=== PATIENT | female | born 1995 | race Caucasian/White ===

== ENCOUNTER 2019-05-13 16:56 | Outpatient (CLI) | payer MEDICAID ==
[~2019-05-13] VITALS: Ht 170.2 cm; Wt 115.2 kg
[~2019-05-13 16:56] MED LIST: AGM875T PO; CETI10TA17 PO; HSCO125 PO; HYDR-3714 PO; METH36TA11 PO; NAPR-591 PO; OMEP40CA36 PO; OXYC-12 PO; SERT100T PO; SERT50TA2 PO
--- NOTE | 2019-05-13 17:10 | NUR ---
JOCELYN TAPIA presented to unit via w/c from ED, accompanied by parents, with c/o LOWER ABD PRESSURE, DISCHARGE. JOCELYN TAPIA weighed, gowned, voided, and to bed. EFHM and TOCO applied, VS taken. JOCELYN TAPIA oriented to bed controls, call light, TV, heat, and A/C controls.
[2019-05-13 17:15] VITALS: BP 107/63
[2019-05-13 17:30] VITALS: BP 107/63
--- NOTE | 2019-05-13 17:40 | NUR ---
DR. PEOPLES NOTIFIED OF EVALUATION. CERVICAL EXAM, COMPLAINT, URINARY SYMPTOMS, AND VS.
[2019-05-13 17:53] LABS: CLARITY,URINE CLOUDY; COLOR,URINE YELLOW; GLUCOSE, URINE (UA) NEGATIVE (NEGATIVE); KETONES,URINE 1+ (NEGATIVE); LEUKOCYTE ESTERASE ,URINE 1+ (NEGATIVE); NITRITE,URINE NEGATIVE (NEGATIVE); PH,URINE 5.5 (5-9); PROTEIN,URINE 1+ (NEGATIVE)
--- NOTE | 2019-05-13 18:06 | NUR ---
FHR TRACING REVIEWED WITH DR. PEOPLES.
[2019-05-13 18:15] LABS: BILIRUBIN,URINE 1+ (NEGATIVE); RBC,URINE RARE /HPF
[2019-05-13 18:16] LABS: BACTERIA,URINE LARGE /HPF; SQUAMOUS EPITHELIAL CELL,UR 25-50 /HPF; WBC,URINE 25-50 /HPF
--- NOTE | 2019-05-13 18:25 | NUR ---
URINE RESULTS REPORTED TO DR. PEOPLES.
--- NOTE | 2019-05-13 18:29 | NUR ---
UTERINE IRRITABILITY WITH ONE CTX NOTED. OCC VARIABLE NOTED. FETUS APPEARS TO HAVE ARRHYTHMIA WITH AUDIBLE SKIPPED BEATS NOTED. DR. PEOPLES NOTIFIED. FHR BASELINE 140 WITH MOD VARIABILITY. + FM WITH + ACCELS.
--- NOTE | 2019-05-13 18:30 | NUR ---
EFM OFF. UP TO GET DRESSED.
[2019-05-13] MEDS ORDERED: PNV11TAB5 PO (18:44)
[2019-05-13] MEDS ORDERED: RANI150T90 PO (18:45)
[2019-05-13] MEDS ORDERED: AMOX500C2 PO (18:47)
--- NOTE | 2019-05-13 18:50 | NUR ---
RX CALLED TO [facility] FOR AMOXICILLIN 500MG BID X [address] PEOPLES'S ORDER.
[2019-05-13 18:55] VITALS: BP 107/63
--- NOTE | 2019-05-13 18:55 | NUR ---
DISCHARGE INSTRUCTIONS REVIEWED WITH PT AND FAMILY AND COPY GIVEN. STATES UNDERSTANDING OF ALL INSTRUCTIONS AND NEED TO F/U SCHEDULED AND NEEDED. DISMISSED AMB FROM WS IN STABLE CONDITION ACC BY PARENTS.
--- NOTE | 2019-05-14 08:22 | Physician Query-Final Dx ---
SUZIE GUZMÁN 05/14/19 0822: Clinic Account Progress/Dx Physician Query: Please give diagnosis Please include # weeks gestation Date of Service May 13, 2019 at 16:56 VICKIE PEOPLES MD 05/14/19 1221: Clinic Account Progress/Dx DIAGNOSIS: Diagnosis 37 weeks gestation urinary tract infection SUZIE GUZMÁN May 14, 2019 08:22 VICKIE PIERRE MD May 14, 2019 12:21 POS
== END 2019-05-13 18:55 | disposition home or self-care (01) ==
LOC: WSo 16:56 → LDRP 16:57 → WSo 18:55
PROVIDERS: ATTEND Family Medicine
DX: O23.43 Unspecified infection of urinary tract in pregnancy, third trimester (principal); Z3A.37 37 weeks gestation of pregnancy
CPT/HCPCS: 81000; 87088; 99213

== ENCOUNTER 2019-06-01 06:00 | Inpatient (IN) | payer MEDICAID ==
[2019-06-01] VITALS (48 sets, daily range): BP systolic 107–137; BP diastolic 61–88
[~2019-06-01] VITALS: Ht 172.7 cm; Wt 114.2 kg
[~2019-06-01 06:00] MED LIST changes: +AMOX500C2 PO; +PNV11TAB5 PO; +RANI150T90 PO
--- NOTE | 2019-06-01 06:35 | NUR ---
JOCELYN TAPIA presented to unit via ambulation from home, accompanied by family, for INDUCTION. JOCELYN TAPIA weighed, gowned, voided, and to bed. EFHM and TOCO applied, VS taken. JOCELYN TAPIA oriented to bed controls, call light, TV, heat, and A/C controls.
[2019-06-01] MEDS ORDERED: D5 LR IV SOLUTION 1,000 ML IV SCH (07:06)
[2019-06-01] MEDS ORDERED: MINERAL OIL CONCENTRATE 99.9% 15 ML UDC TOP PRN (07:15)
[2019-06-01 07:39] LABS: BASOPHILS % (AUTO) 0 % (0-10); EOSINOPHILS # (AUTO) 0.1 10^3/uL (0.0-0.3); EOSINOPHILS % (AUTO) 1 % (0-10); HEMATOCRIT 28 % (35-52); HEMOGLOBIN 9.1 G/DL (11.5-16.0); LYMPHOCYTES % (AUTO) 18 % (12-44); MEAN CORPUSCULAR HEMOGLOBIN 28 PG (25-34); MEAN CORPUSCULAR HGB CONC 32 G/DL (32-36); MEAN CORPUSCULAR VOLUME 88 FL (80-99); MEAN PLATELET VOLUME 10.7 FL (7.4-10.4); MONOCYTES # (AUTO) 0.7 X 10^3 (0.0-1.0); MONOCYTES % (AUTO) 13 % (0-12); NEUTROPHILS # (AUTO) 3.9 X 10^3 (1.8-7.8); NEUTROPHILS % (AUTO) 69 % (42-75); PLATELET COUNT 176 10^3/uL (130-400); RED CELL DISTRIBUTION WIDTH 14.4 % (10.0-14.5); WHITE BLOOD COUNT 5.7 10^3/uL (4.3-11.0)
[2019-06-01] MEDS ORDERED: PNV11TAB5 PO (07:54)
[2019-06-01] MEDS ORDERED: SUFENTA 0.6MCG/ML BUPIVA 0.125 100 ML ONE (08:37)
[2019-06-01] MEDS ORDERED: OXYTOCIN/NORMAL SALINE 500 ML IV SCH ×2 (08:38→14:22)
[2019-06-01] MEDS ORDERED: fentaNYL INJECTION 100 MCG/2 ML AMP ONE (09:10)
[2019-06-01] MEDS ORDERED: BUPIVACAINE 0.25% 30 ML (SENSORCAINE) VIAL ONE (09:10)
[2019-06-01] MEDS ORDERED: LACTATED RINGERS 1,000 ML IV ONE (09:41)
[2019-06-01] MEDS ORDERED: NALOXONE 0.4 MG/ML 1 ML (NARCAN) VIAL IV PRN (09:45)
[2019-06-01] MEDS ORDERED: CATHETER FLUSH 10 ML SYR IV PRN (09:45)
[2019-06-01] MEDS ORDERED: EPIDURAL (SUFENTA 0.6MCG/ML BUPIVA 0.125%) 100 ML BAG EPI SCH (09:45)
--- NOTE | 2019-06-01 13:20 | History & Physical-OB ---
OB - Chief Complaint & HPI Date/Time Date of Admission: Date of Admission: Jun 01, 2019 at 06:24 Date seen by a Provider: Jun 01, 2019 Time Seen by a Provider: 13:15 Chief Complaint/History OB-Reason for Admission/Chief: Induction of Labor Hx : 2 Hx Para: 1 Expected Date of Delivery: Jun 04, 2019 Gestational Age in Weeks: 39 Gestational Age in Days: 4 Indication for induction: maternal discomfort History of Labs Normal 1 hr GTT GBS neg Allergies and Home Medications Allergies Coded Allergies: coconut (Verified Allergy, Unknown, 06/01/19) Home Medications Txq612/FA/Omega3/Dha/Fish Oil 1 Each Tab.chew, 1 EACH PO DAILY, (Reported) Ranitidine HCl 150 Mg Tablet, 150 MG PO BID, (Reported) Patient Home Medication List Home Medication List Reviewed: Yes OB - History Hx of Present Care: Yes Ultrasounds: Normal mid trimester US, Other (Transfer of care from [place] ) Obstetrical Complications: None Information Induced Hypertension: No Maternal Gestational Diabetes: No Hemorrhage: No Obstetrical History Hx : 2 Hx Para: 1 Hx # Term Pregnancies: 1 Number of Living Children: 1 Delivery History Hx Blood Disorders: No Adverse Rxn to Tranfusion: No Patient Past Medical History GERD Obesity Social History/Family History HIV/AIDS: No Recent Infectious Disease Expo: No Alcohol Use: Denies Use Recreational Drug Use: No Immunizations Hepatitis A: No Hepatitis B: No Tetanus Booster (TDap): Less than 5yrs Date of Influenza Vaccine: Apr 12, 2019 GBS Status: Negative OB - Admission Exam Physical Exam Vitals: Vital Signs 06/01/19 06/01/19 06/01/19 09:43 11:15 11:30 Temp 36.3 Pulse 75 Resp 18 B/P (MAP) 111/64 (80) Pulse Ox 99 O2 Delivery Room Air HEENT: NCAT Heart: Rhythm Normal Lungs: Clear Abdomen: Gravid Cervical Dilatation: 9cm Effacement: 75% Station: -1 Membranes: Ruptured Amniotic Fluid: Clear Heart Rate: 140's Decelerations: Early Decelerations Short Term Variability: Present Contractions on Admission: 6-10 Minutes Apart Ritchie Scoring Tool (Modified) Dilation (cm): 3-4cm (2) Effacement (%): 51-79% (2) Descent/Station: -1,0 (2) Cervix Consistency: Soft (2) Cervix Position: Middle/Mid-Position (1) Add 1 point for: Each previous vaginal delivery (1) Ritchie Score: 10 Labs Laboratory Tests Test 06/01/19 07:20 Range/Units White Blood Count 5.7 4.3-11.0 10^3/uL Red Blood Count 3.20 L 4.35-5.85 10^6/uL Hemoglobin 9.1 L 11.5-16.0 G/DL Hematocrit 28 L 35-52 % Mean Corpuscular Volume 88 80-99 FL Mean Corpuscular Hemoglobin 28 25-34 PG Mean Corpuscular Hemoglobin Concent 32 32-36 G/DL Red Cell Distribution Width 14.4 10.0-14.5 % Platelet Count 176 130-400 10^3/uL Mean Platelet Volume 10.7 H 7.4-10.4 FL Neutrophils (%) (Auto) 69 42-75 % Lymphocytes (%) (Auto) 18 12-44 % Monocytes (%) (Auto) 13 H 0-12 % Eosinophils (%) (Auto) 1 0-10 % Basophils (%) (Auto) 0 0-10 % Neutrophils # (Auto) 3.9 1.8-7.8 X 10^3 Lymphocytes # (Auto) 1.0 1.0-4.0 X 10^3 Monocytes # (Auto) 0.7 0.0-1.0 X 10^3 Eosinophils # (Auto) 0.1 0.0-0.3 10^3/uL Basophils # (Auto) 0.0 0.0-0.1 10^3/uL OB - Assessment/Plan/Diagnosis Assessment Assessment: induction of labor Admission Dx labor 39 weeks gestation third trimester Obesity in Admission Status: Inpatient Order (span 2 midnights) Reason for Inpatient Admission: Labor Plan Plan: Induction Other Plan 23 yo @ 39.4 wga here for IOL Plan - AROM this AM by Dr Frankel, clear fluid - GBS neg - Pitocin Protocol Copy Copies To 1: RONALD MARES MD, HOLLY R MD Jun 01, 2019 13:20 POS
--- NOTE | 2019-06-01 13:58 | NUR ---
spontaneous vaginal delivery of placenta with cord attached. pitocin increased to 999ml/hr as ordered by dr renteria. fundal massage per dr renteria with heavy to moderate rubra noted, large clot expressed per dr renteria with vaginal flow slowing. 1400 cytotec placed rectally per dr renteria 1410 vss. ffu/0 with lt-mod rubra noted, pericare pad under pt and pt assisted out of lithotomy and to sf position. plan of care reviewed with pt and family at bedside regarding recovery. 1425 ffu/0 with moderate rubra noted, no clots expressed. pt at this time 1440 vss ffu/0 with mod rubra noted, no clots expressed. 1455 vss ffu/0 with mod rubra noted, no clots expressed. family remains at bedside. 1510 ffu/0 with mod rubra noted, no clots expressed. vss. pt denies needs.
--- NOTE | 2019-06-01 14:21 | OB Labor & Delivery Record ---
Vag Delivery Note Vag Delivery Note Date of Delivery: 06/01/19 Preoperative Diagnosis: Colleen Vogel is a (23 /Para 2 / 1, Gestational Age (wks)39.4 wga here for IOL. Postoperative Diagnosis: Same Surgeon: RONALD MARES Network Systems Engineer: None Anesthesia: Epidural Delivery Type: @ 1353 Findings: Viable female infant, apgars 7/9, weight 7#14, 3545 grams Lacerations: None Intact placenta with 3 vessel cord. No nuchal cord, body cord or shoulder dystocia Cytotec 800 mcg placed for hemorrhage prophylaxis Estimated Blood Loss: 200 ml Complications: None Condition: Stable Description of Procedure: The patient is a 23 year old female who presented for IOL. She was admitted and informed consent was obtained. Her labor course was unremarkable. She progressed to complete dilatation and began to push. She was then set up for delivery. The infant's head was delivered atraumatically in the NELL position. The shoulders and remainder of the 's body were then delivered without difficulty. Upon delivery, the head was held below the level of the perineum and the mouth and nares were bulb suctioned. The cord was doubly clamped and cut by FOB and the infant was placed on maternal abdomen and attended to by pediatric staff. An intact placenta with 3-vessel cord delivered via Mel and there was found to be moderate bleeding.~ Vigorous fundal massage was performed and large clot evacuated and cytotec placed and then the fundus was found to be firm. IV oxytocin was given. Examination of the vagina and perineum revealed no lacerations that required repair. Following the repair, sponge, instrument and needle counts were correct. Mom and baby were both in stable condition in the labor suite. Vitals - Labs Vital Signs - I&O Vital Signs Date Time Temp Pulse Resp B/P (MAP) Pulse Ox O2 Delivery O2 Flow Rate FiO2 06/01/19 11:30 75 18 111/64 (80) Room Air 06/01/19 11:15 80 18 114/65 (81) 99 Room Air 06/01/19 11:00 80 18 114/67 (83) 99 Room Air 06/01/19 10:45 76 18 115/66 (82) 98 Room Air 06/01/19 10:30 74 18 117/68 (84) 98 Room Air 06/01/19 10:25 80 18 131/76 (94) 98 Room Air 06/01/19 10:20 78 18 128/67 (87) 97 Room Air 06/01/19 10:15 77 18 126/76 (93) 98 Room Air 06/01/19 10:10 79 18 130/79 (96) 98 Room Air 06/01/19 10:05 92 18 126/76 (93) 97 Room Air 06/01/19 10:00 82 18 125/70 (88) 98 Room Air 06/01/19 09:57 81 18 120/69 (86) 97 Room Air 06/01/19 09:54 82 18 118/64 (82) 97 Room Air 06/01/19 09:51 86 18 119/65 (83) 97 Room Air 06/01/19 09:46 86 18 115/83 (94) 97 Room Air 06/01/19 09:45 97 Room Air 06/01/19 09:43 36.3 87 18 121/61 (81) 97 Room Air 06/01/19 09:40 86 18 123/73 (90) 97 Room Air 06/01/19 09:35 93 18 137/67 (90) 97 Room Air 06/01/19 09:30 86 18 127/82 (97) 98 Room Air 06/01/19 09:25 90 18 131/84 (100) 99 Room Air 06/01/19 09:20 88 18 127/82 (97) 98 Room Air 06/01/19 09:15 91 18 123/85 (98) Room Air 06/01/19 09:00 96 18 123/73 (90) Room Air 06/01/19 08:30 82 18 119/74 (89) Room Air 06/01/19 08:10 36.4 84 18 129/69 (89) Room Air 06/01/19 07:30 110 18 130/88 (102) Room Air 06/01/19 06:40 36.6 111 16 99 Room Air 06/01/19 06:40 36.6 93 16 132/78 (96) 98 Room Air Labs Laboratory Tests 06/01/19 07:20: White Blood Count 5.7, Red Blood Count 3.20L, Hemoglobin 9.1L, Hematocrit 28L, Mean Corpuscular Volume 88, Mean Corpuscular Hemoglobin 28, Mean Corpuscular Hemoglobin Concent 32, Red Cell Distribution Width 14.4, Platelet Count 176, Mean Platelet Volume 10.7H, Neutrophils (%) (Auto) 69, Lymphocytes (%) (Auto) 18, Monocytes (%) (Auto) 13H, Eosinophils (%) (Auto) 1, Basophils (%) (Auto) 0, Neutrophils # (Auto) 3.9, Lymphocytes # (Auto) 1.0, Monocytes # (Auto) 0.7, Eosinophils # (Auto) 0.1, Basophils # (Auto) 0.0 RONALD MARES MD Jun 01, 2019 14:21 POS
[2019-06-01] MEDS ORDERED: WITCH HAZEL(TUCKS) 40 EA JAR TOP PRN (14:30)
[2019-06-01] MEDS ORDERED: MISOPROSTOL 200 MCG (CYTOTEC) TABLET PO NR (14:30)
[2019-06-01] MEDS ORDERED: MEASLES,MUMPS,RUBELLA 1 EA INJ SQ ONE (14:30)
[2019-06-01] MEDS ORDERED: TETANUS,DIPTH,PERTUSS P/F (BOOSTRIX) 0.5 ML VIAL IM ONE (14:30)
[2019-06-01] MEDS ORDERED: BENZOCAINE/MENTHOL (DERMOPLAST) 56 ML CAN TP PRN (14:30)
--- NOTE | 2019-06-01 16:15 | NUR ---
pericare, pad changed underwear on. pt transferred to wheelchair on own and then to room 312. Oriented to room, call light and surroundings. info packet discussed with pt and pt verbalized understanding. pt denies need to void at this time.
[2019-06-01] MEDS: IBUPROFEN 600 MG (MOTRIN) TAB PO SCH ×2 (18:51→23:51)
--- NOTE | 2019-06-01 18:52 | NUR ---
pt reports having been up to void with no problems.
[2019-06-01] MEDS ORDERED: CATHETER FLUSH 10 ML SYR IV SCH (22:00)
[2019-06-01] MEDS: DOCUSATE SODIUM 100 MG (COLACE) CAP PO SCH (23:51)
[2019-06-02] MEDS: ACETAMINOPHEN 500 MG TAB (TYLENOL) PO SCH ×3 (01:19→18:34)
[2019-06-02] MEDS ORDERED: CALCIUM CARBONATE 500 MG (TUMS) TAB.CHEW PO PRN (01:30)
[2019-06-02 05:34] VITALS: BP 98/66
[2019-06-02] MEDS: IBUPROFEN 600 MG (MOTRIN) TAB PO SCH ×3 (05:36→18:34)
[2019-06-02 05:58] LABS: BASOPHILS % (AUTO) 0 % (0-10); EOSINOPHILS # (AUTO) 0.1 10^3/uL (0.0-0.3); EOSINOPHILS % (AUTO) 1 % (0-10); HEMATOCRIT 27 % (35-52); HEMOGLOBIN 8.5 G/DL (11.5-16.0); LYMPHOCYTES # (AUTO) 1.2 X 10^3 (1.0-4.0); LYMPHOCYTES % (AUTO) 17 % (12-44); MEAN CORPUSCULAR HEMOGLOBIN 28 PG (25-34); MEAN CORPUSCULAR HGB CONC 32 G/DL (32-36); MEAN CORPUSCULAR VOLUME 89 FL (80-99); MEAN PLATELET VOLUME 10.8 FL (7.4-10.4); MONOCYTES # (AUTO) 0.8 X 10^3 (0.0-1.0); MONOCYTES % (AUTO) 11 % (0-12); NEUTROPHILS # (AUTO) 5.1 X 10^3 (1.8-7.8); NEUTROPHILS % (AUTO) 71 % (42-75); PLATELET COUNT 162 10^3/uL (130-400); RED CELL DISTRIBUTION WIDTH 14.3 % (10.0-14.5); WHITE BLOOD COUNT 7.1 10^3/uL (4.3-11.0)
--- NOTE | 2019-06-02 06:46 | Anesthesia-Regional Post-Op ---
Regional Patient Condition Mental Status: Alert, Oriented x3 Circulation: Same as Pre-Op Headache: Absent Sensation: Full Recovery Motor Block: Absent Post Op Complications Complications None Follow Up Care/Instructions Patient Instructions None needed. Anesthesia/Patient Condition Patient is doing well, no complaints, stable vital signs, no apparent adverse anesthesia problems. No complications reported per nursing. RAJEEV PUENTES CRNA Jun 02, 2019 06:46 POS
[2019-06-02] MEDS ORDERED: FERROUS SULF 325 MG (IRON) TAB PO SCH (07:00)
[2019-06-02 09:38] VITALS: BP 110/68
[2019-06-02] MEDS: DOCUSATE SODIUM 100 MG (COLACE) CAP PO SCH (09:39)
--- NOTE | 2019-06-02 09:40 | NUR ---
PT IN BED. VS OBTAINED. MEDS GIVEN PO; SEE EMAR FOR FURTHER. INITIAL SHIFT ASSESSMENT COMPLETED; SEE INTERVENTION FOR FURTHER. PT DENIES ANY NEEDS OR QUESTIONS AT THIS TIME. CALL LIGHT WITHIN REACH.
--- NOTE | 2019-06-02 10:08 | Progress Note ---
Subjective Subjective/Events-last exam Bleeding slowed, pain controlled. Objective Exam Last Set of Vital Signs Vital Signs Date Time Temp Pulse Resp B/P (MAP) Pulse Ox O2 Delivery O2 Flow Rate FiO2 06/02/19 09:38 36.6 79 18 110/68 (82) 98 Room Air 06/01/19 13:45 10.00 Capillary Refill : Less Than 3 Seconds I&O Intake and Output 06/02/19 00:00 Intake Total 2400 ml Balance 2400 ml Intake IV Total 2400 ml Daily Weight Change No General: Alert, Oriented X3, Cooperative Psych/Mental Status: Mood NL Results/Procedures Lab Laboratory Tests 06/02/19 05:49: White Blood Count 7.1, Red Blood Count 3.02L, Hemoglobin 8.5L, Hematocrit 27L, Mean Corpuscular Volume 89, Mean Corpuscular Hemoglobin 28, Mean Corpuscular Hemoglobin Concent 32, Red Cell Distribution Width 14.3, Platelet Count 162, Mean Platelet Volume 10.8H, Neutrophils (%) (Auto) 71, Lymphocytes (%) (Auto) 17, Monocytes (%) (Auto) 11, Eosinophils (%) (Auto) 1, Basophils (%) (Auto) 0, Neutrophils # (Auto) 5.1, Lymphocytes # (Auto) 1.2, Monocytes # (Auto) 0.8, Eosinophils # (Auto) 0.1, Basophils # (Auto) 0.0 Assessment/Plan Assessment/Plan (1) Status post vaginal delivery Assessment & Plan: Routine care. Clinical Quality Measures DVT/VTE Risk/Contraindication: Risk Factor Score Per Nursin RFS Level Per Nursing on Admit: 1=Low/No VTE PPX YOUNG WORTHY DO Jun 02, 2019 10:08 POS
[2019-06-02 13:10] VITALS: BP 119/73
--- NOTE | 2019-06-02 13:10 | NUR ---
PT IN BED. VISITOR AT THE BEDSIDE. VS OBTAINED. MEDS GIVEN PO; SEE EMAR FOR FURTHER.
[2019-06-02 17:19] VITALS: BP 114/76
[2019-06-02] MEDS ORDERED: IBUP-844 PO (18:09)
[2019-06-02] MEDS ORDERED: FERR325T18 PO (18:09)
--- NOTE | 2019-06-02 18:25 | Short Stay Summary ---
Discharge Summary Hospital Course Problems/Dx: (1) Status post vaginal delivery Final Diagnosis: see Hospital Course Hospital Course Date of Admission: Jun 01, 2019 at 06:24 Admission Dx: 1. G2 at 39w4d induction of labor Family Physician/Provider: Feng Date of Discharge: 06/02/19 1. s/p at 39wk Hospital Course: Routine course. Labs and Pending Lab Test: Laboratory Tests 06/02/19 05:49: White Blood Count 7.1, Red Blood Count 3.02L, Hemoglobin 8.5L, Hematocrit 27L, Mean Corpuscular Volume 89, Mean Corpuscular Hemoglobin 28, Mean Corpuscular Hemoglobin Concent 32, Red Cell Distribution Width 14.3, Platelet Count 162, Mean Platelet Volume 10.8H, Neutrophils (%) (Auto) 71, Lymphocytes (%) (Auto) 17, Monocytes (%) (Auto) 11, Eosinophils (%) (Auto) 1, Basophils (%) (Auto) 0, Neutrophils # (Auto) 5.1, Lymphocytes # (Auto) 1.2, Monocytes # (Auto) 0.8, Eosinophils # (Auto) 0.1, Basophils # (Auto) 0.0, HIV (1&2) Ag and Ab Screen Referral [Pending] Home Meds Active Ibu (Ibuprofen) 600 Mg Tablet 600 Mg PO Q6HR PRN Ferrous Sulfate 325 Mg Tablet 325 Mg PO DAILY@0700 Reported Gummies (Uxs754/FA/Omega3/Dha/Fish Oil) 1 Each Tab.chew 1 Each PO DAILY Acid Environmental Health Inspector (RANITIDINE) (Ranitidine HCl) 150 Mg Tablet 150 Mg PO BID Assessment/Pt Instructions FU with Dr. Toney in 6 wk Discharge Instructions Discharge Diet: No Restrictions Discharge Physical Examination General Appearance: Alert, Oriented X3, Cooperative Psych/Mental Status: Mood NL Allergies: Coded Allergies: coconut (Verified Allergy, Unknown, 06/01/19) Discharge Summary Date of Admission Jun 01, 2019 at 06:24 Date of Discharge Discharge Date: Jun 02, 2019 Clinical Quality Measures DVT/VTE Risk/Contraindication: Risk Factor Score Per Nursin RFS Level Per Nursing on Admit: 1=Low/No VTE PPX YOUNG WORTHY DO Jun 02, 2019 18:24 POS
--- NOTE | 2019-06-02 18:40 | NUR ---
DISCHARGE PAPERS PROVIDED AND REVIEWED WITH PT, PT VERBALIZES UNDERSTANDING AND DENIES ANY QUESTIONS AT THIS TIME. S/O AND FAMILY AT THE BEDSIDE. PAPER SIGNED.
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
--- OUTSIDE RECORDS SUMMARY | 2019-06-26 01:56 | XMS REPORT | Continuity of Care Document ---
Author Organization Unknown Address Unknown Phone Unavailable Allergies There is no data. Medications There is no data. Problems Date Dx Coded Attending Type Code Diagnosis Diagnosed By 02/02/2013 309.89 OT ER SPECIFIED ADJUSTMENT REACTIONS 02/02/2013 369.20 LOW VISION BOTH EYES NOT OTHERWISE SPECIFIED 02/02/2013 626.4 IRRE GULAR MENSTRUAL CYCLE 02/02/2013 V20.2 WELL CHILD 02/02/2013 DANIELLE [place] R 309.89 OTHER SPECIFIED ADJUSTMENT REACTIONS 02/02/2013 DEVON BURROWS, DANIELLE R 369.20 LOW VISION BOTH EYES NOT OTHERWISE SPECIFIED 02/02/2013 MILAGROS NYELA R 626.4 IRREGULAR MENSTRUAL CYCLE 02/02/2013 DEVON BURROWS, DANIELLE R V20.2 WELL CHILD 02/02/2013 KAITLYNN OSORIO PHD 309.89 OTHER SPECIFIED ADJUSTMENT REACTIONS 02/02/2013 KAITLYNN OSORIO PHD 369.20 LOW VISION BOTH EYES NOT OTHERWISE SPECIFIED 02/02/2013 KAITLYNN OSORIO PHD 626.4 IRREGULAR MENSTRUAL CYCLE 02/02/2013 KAITLYNN OSORIO PHD V20.2 WELL CHILD 02/02/2013 DEVON BAO, DANIELLE R 309.89 OTHER SPECIFIED ADJUSTMENT REACTIONS 02/02/2013 DEVON BAO, DANIELLE R 369.20 LOW VISION BOTH EYES NOT OTHERWISE SPECIFIED 02/02/2013 DEVON BAO DANIELLE R 626.4 IRREGULAR MENSTRUAL CYCLE 02/02/2013 DEVON BAO, DANIELLE R V20.2 WELL CHILD 02/02/2013 LOLA ORTA MD 309.8 9 OTHER SPECIFIED ADJUSTMENT REACTIONS 02/02/2013 LOLA ORTA MD 369.2 0 LOW VISION BOTH EYES NOT OTHERWISE SPECIFIED 02/02/2013 LOLA ORTA MD 626.4 IRREGULAR MENSTRUAL CYCLE 02/02/2013 LOLA ORTA MD V20.2 WELL CHILD 02/02/2013 PHILLIP GARCIA JR 309.89 OTHER SPECIFIED ADJUSTMENT REACTIONS 02/02/2013 PHILLIP GARCIA JR 369.20 LOW VISION BOTH EYES NOT OTHERWISE SPECIFIED 02/02/2013 PHILLIP GARCIA JR 626.4 IRREGULAR MENSTRUAL CYCLE 02/02/2013 PHILLIP GARCIA JR V20.2 WELL CHILD 02/02/2013 LOLA ORTA MD 309.8 9 OTHER SPECIFIED ADJUSTMENT REACTIONS 02/02/2013 LOLA ORTA MD 369.2 0 LOW VISION BOTH EYES NOT OTHERWISE SPECIFIED 02/02/2013 LOLA ORTA MD 626.4 IRREGULAR MENSTRUAL CYCLE 02/02/2013 LOLA ORTA MD V20.2 WELL CHILD 02/02/2013 DEVON LSCS, DANIELLE R 309.89 OTHER SPECIFIED ADJUSTMENT REACTIONS 02/02/2013 DEVON LSCS, DANIELLE R 369.20 LOW VISION BOTH EYES NOT OTHERWISE SPECIFIED 02/02/2013 DEVON LSCS, DANIELLE R 626.4 IRREGULAR MENSTRUAL CYCLE 02/02/2013 DEVON LSCS, DANIELLE R V20.2 WELL CHILD 02/02/2013 LOLA ORTA MD 309.8 9 OTHER SPECIFIED ADJUSTMENT REACTIONS 02/02/2013 LOLA ORTA MD 369.2 0 LOW VISION BOTH EYES NOT OTHERWISE SPECIFIED 02/02/2013 LOLA ORTA MD 626.4 IRREGULAR MENSTRUAL CYCLE 02/02/2013 LOLA ORTA MD V20.2 WELL CHILD 02/02/2013 DEVON LSCS, DANIELLE R 309.89 OTHER SPECIFIED ADJUSTMENT REACTIONS 02/02/2013 DEVON LSCS, DANIELLE R 369.20 LOW VISION BOTH EYES NOT OTHERWISE SPECIFIED 02/02/2013 DEVON LSCS, DANIELLE R 626.4 IRREGULAR MENSTRUAL CYCLE 02/02/2013 DEVON LSCS, DANIELLE R V20.2 WELL CHILD 02/02/2013 DEVON LSCS, DANIELLE R 309.89 OTHER SPECIFIED ADJUSTMENT REACTIONS 02/02/2013 DEVON LSCS, DANIELLE R 369.20 LOW VISION BOTH EYES NOT OTHERWISE SPECIFIED 02/02/2013 DEVON LSCS, DANIELLE R 626.4 IRREGULAR MENSTRUAL CYCLE 02/02/2013 DEVON LSCS, DANIELLE R V20.2 WELL CHILD 02/02/2013 DEVON LSCS, DANIELLE R 309.89 OTHER SPECIFIED ADJUSTMENT REACTIONS 02/02/2013 DEVON LSCS, DANIELLE R 369.20 LOW VISION BOTH EYES NOT OTHERWISE SPECIFIED 02/02/2013 DEVON LSCS, DANIELLE R 626.4 IRREGULAR MENSTRUAL CYCLE 02/02/2013 DEVON LSCS, DANIELLE R V20.2 WELL CHILD 02/02/2013 DEVON LSCS, DANIELLE R 309.89 OTHER SPECIFIED ADJUSTMENT REACTIONS 02/02/2013 DEVON LSCS, DANIELLE R 369.20 LOW VISION BOTH EYES NOT OTHERWISE SPECIFIED 02/02/2013 DEVON LSCS, DANIELLE R 626.4 IRREGULAR MENSTRUAL CYCLE 02/02/2013 DEVON LSCS, DANIELLE R V20.2 WELL CHILD 02/02/2013 LOLA ORTA MD 309.8 9 OTHER SPECIFIED ADJUSTMENT REACTIONS 02/02/2013 LOLA ORTA MD 369.2 0 LOW VISION BOTH EYES NOT OTHERWISE SPECIFIED 02/02/2013 LOLA ORTA MD 626.4 IRREGULAR MENSTRUAL CYCLE 02/02/2013 LOLA ORTA MD V20.2 WELL CHILD 02/02/2013 DEVON LSCS, DANIELLE R 309.89 OTHER SPECIFIED ADJUSTMENT REACTIONS 02/02/2013 DEVON LSCS, DANIELLE R 369.20 LOW VISION BOTH EYES NOT OTHERWISE SPECIFIED 02/02/2013 DEVON LSCS, DANIELLE R 626.4 IRREGULAR MENSTRUAL CYCLE 02/02/2013 DEVON LSCS, DANIELLE R V20.2 WELL CHILD 02/02/2013 BRIANA POWELL, KOFFI J 309.89 OTHER SPECIFIED ADJUSTMENT REACTIONS 02/02/2013 BRIANA LOCON, KOFFI J 369.20 LOW VISION BOTH EYES NOT OTHERWISE SPECIFIED 02/02/2013 BRIANA POWELL, KOFFI J 626.4 IRREGULAR MENSTRUAL CYCLE 02/02/2013 BRIANA POWELL, KOFFI J V20.2 WELL CHILD 02/02/2013 DEVON LSCS, DANIELLE R 309.89 OTHER SPECIFIED ADJUSTMENT REACTIONS 02/02/2013 DEVON LSCS, DANIELLE R 369.20 LOW VISION BOTH EYES NOT OTHERWISE SPECIFIED 02/02/2013 DEVON LSCS, DANIELLE R 626.4 IRREGULAR MENSTRUAL CYCLE 02/02/2013 DEVON LSCS, DANIELLE R V20.2 WELL CHILD 02/02/2013 [employer]ANA [employer], KOFFI J 309.89 OTHER SPECIFIED ADJUSTMENT REACTIONS 02/02/2013 [employer], KOFFI J 369.20 LOW VISION BOTH EYES NOT OTHERWISE SPECIFIED 02/02/2013 [employer], KOFFI J 626.4 IRREGULAR MENSTRUAL CYCLE 02/02/2013 [employer], KOFFI J V20.2 WELL CHILD 02/02/2013 DEVON LSCS, DANIELLE R 309.89 OTHER SPECIFIED ADJUSTMENT REACTIONS 02/02/2013 DEVON LSCS, DANIELLE R 369.20 LOW VISION BOTH EYES NOT OTHERWISE SPECIFIED 02/02/2013 DEVON LSCS, DANIELLE R 626.4 IRREGULAR MENSTRUAL CYCLE 02/02/2013 DEVON LSCS, DANIELLE R V20.2 WELL CHILD 02/02/2013 DEVON LSCS, DANIELLE R 309.89 OTHER SPECIFIED ADJUSTMENT REACTIONS 02/02/2013 DEVON LSCS, DANIELLE R 369.20 LOW VISION BOTH EYES NOT OTHERWISE SPECIFIED 02/02/2013 DEVON LSCS, DANIELLE R 626.4 IRREGULAR MENSTRUAL CYCLE 02/02/2013 DEVON LSCS, DANIELLE R V20.2 WELL CHILD 02/02/2013 BRIANA LOCON, KOFFI J 309.89 OTHER SPECIFIED ADJUSTMENT REACTIONS 02/02/2013 [employer], KOFFI J 369.20 LOW VISION BOTH EYES NOT OTHERWISE SPECIFIED 02/02/2013 BRIANA LOCON, KOFIF J 626.4 IRREGULAR MENSTRUAL CYCLE 02/02/2013 [employer], KOFFI J V20.2 WELL CHILD 02/02/2013 DEVON LSCS, DANIELLE R 309.89 OTHER SPECIFIED ADJUSTMENT REACTIONS 02/02/2013 DEVON LSCS, DANIELLE R 369.20 LOW VISION BOTH EYES NOT OTHERWISE SPECIFIED 02/02/2013 DEVON LSCS, DANIELLE R 626.4 IRREGULAR MENSTRUAL CYCLE 02/02/2013 DEVON LSCS, DANIELLE R V20.2 WELL CHILD 02/02/2013 DEVON LSCS, DANIELLE R 309.89 OTHER SPECIFIED ADJUSTMENT REACTIONS 02/02/2013 DEVON LSCS, DANIELLE R 369.20 LOW VISION BOTH EYES NOT OTHERWISE SPECIFIED 02/02/2013 DEVON LSCS, DANIELLE R 626.4 IRREGULAR MENSTRUAL CYCLE 02/02/2013 DEVON LSCS, DANIELLE R V20.2 WELL CHILD 02/02/2013 [employer], KOFFI J 309.89 OTHER SPECIFIED ADJUSTMENT REACTIONS 02/02/2013 [employer], KOFFI J 369.20 LOW VISION BOTH EYES NOT OTHERWISE SPECIFIED 02/02/2013 BRIANA [employer], KOFFI J 626.4 IRREGULAR MENSTRUAL CYCLE 02/02/2013 [employer], KOFFI J V20.2 WELL CHILD 02/02/2013 [employer], KOFFI J 309.89 OTHER SPECIFIED ADJUSTMENT REACTIONS 02/02/2013 [employer], KOFFI J 369.20 LOW VISION BOTH EYES NOT OTHERWISE SPECIFIED 02/02/2013 [employer], KOFFI J 626.4 IRREGULAR MENSTRUAL CYCLE 02/02/2013 [employer], KOFFI J V20.2 WELL CHILD 02/02/2013 [employer], KOFFI J 309.89 OTHER SPECIFIED ADJUSTMENT REACTIONS 02/02/2013 [employer], KOFFI J 369.20 LOW VISION BOTH EYES NOT OTHERWISE SPECIFIED 02/02/2013 [employer], KOFFI J 626.4 IRREGULAR MENSTRUAL CYCLE 02/02/2013 [employer], KOFFI J V20.2 WELL CHILD 02/02/2013 [employer], KOFFI J 309.89 OTHER SPECIFIED ADJUSTMENT REACTIONS 02/02/2013 [employer], KOFFI J 369.20 LOW VISION BOTH EYES NOT OTHERWISE SPECIFIED 02/02/2013 [employer], KOFFI J 626.4 IRREGULAR MENSTRUAL CYCLE 02/02/2013 [employer], KOFFI J V20.2 WELL CHILD 02/02/2013 [employer], KOFFI J 309.89 OTHER SPECIFIED ADJUSTMENT REACTIONS 02/02/2013 [employer], KOFFI J 369.20 LOW VISION BOTH EYES NOT OTHERWISE SPECIFIED 02/02/2013 [employer], KOFFI J 626.4 IRREGULAR MENSTRUAL CYCLE 02/02/2013 [employer], KOFFI J V20.2 WELL CHILD 02/02/2013 DEVON LSCS, DANIELLE R 309.89 OTHER SPECIFIED ADJUSTMENT REACTIONS 02/02/2013 DEVON LSCS, DANIELLE R 369.20 LOW VISION BOTH EYES NOT OTHERWISE SPECIFIED 02/02/2013 DEVON LSCS, DANIELLE R 626.4 IRREGULAR MENSTRUAL CYCLE 02/02/2013 DEVON LSCS, DANIELLE R V20.2 WELL CHILD 02/02/2013 [employer], KOFFI J 309.89 OTHER SPECIFIED ADJUSTMENT REACTIONS 02/02/2013 [employer], KOFFI J 369.20 LOW VISION BOTH EYES NOT OTHERWISE SPECIFIED 02/02/2013 [employer], KOFFI J 626.4 IRREGULAR MENSTRUAL CYCLE 02/02/2013 [employer], KOFFI J V20.2 WELL CHILD 02/02/2013 DEVON LSCS, DANIELLE R 309.89 OTHER SPECIFIED ADJUSTMENT REACTIONS 02/02/2013 DEVON LSCS, DANIELLE R 369.20 LOW VISION BOTH EYES NOT OTHERWISE SPECIFIED 02/02/2013 DEVON LSCS, DANIELLE R 626.4 IRREGULAR MENSTRUAL CYCLE 02/02/2013 DEVON LSCS, DANIELLE R V20.2 WELL CHILD 02/08/2013 309.0 AD A DJ D/O W DEPRESSED 02/08/2013 [facility], DANIELLE R 309.0 AD ADJ D/O W DEPRESSED 02/08/2013 DEVON PHD, KAITLYNN White 309.0 AD ADJ D/O W DEPRESSED 02/08/2013 [facility], DANIELLE R 309.0 AD ADJ D/O W DEPRESSED 02/08/2013 YOU MEDRANO, LOLA 309.0 AD ADJ D/O W DEPRESSED 02/08/2013 PHILLIP GARCIA JR 309.0 AD ADJ D/O W DEPRESSED 02/08/2013 YOU MEDRANO, LOLA 309.0 AD ADJ D/O W DEPRESSED 02/08/2013 [facility], DANIELLE R 309.0 AD ADJ D/O W DEPRESSED 02/08/2013 YOU MEDRANO, LOLA 309.0 AD ADJ D/O W DEPRESSED 02/08/2013 [facility], DANIELLE R 309.0 AD ADJ D/O W DEPRESSED 02/08/2013 [facility], DANIELLE R 309.0 AD ADJ D/O W DEPRESSED 02/08/2013 [facility], DANIELLE R 309.0 AD ADJ D/O W DEPRESSED 02/08/2013 [facility], DANIELLE R 309.0 AD ADJ D/O W DEPRESSED 02/08/2013 YOU MEDRANO, LOLA 309.0 AD ADJ D/O W DEPRESSED 02/08/2013 [facility], DANIELLE R 309.0 AD ADJ D/O W DEPRESSED 02/08/2013 KOFFI WARREN APRN 309.0 AD ADJ D/O W DEPRESSED 02/08/2013 [facility], DANIELLE R 309.0 AD ADJ D/O W DEPRESSED 02/08/2013 KOFFI WARREN APRN 309.0 AD ADJ D/O W DEPRESSED 02/08/2013 [facility], DANIELLE R 309.0 AD ADJ D/O W DEPRESSED 02/08/2013 [facility], DANIELLE R 309.0 AD ADJ D/O W DEPRESSED 02/08/2013 KOFFI WARREN APRN 309.0 AD ADJ D/O W DEPRESSED 02/08/2013 [facility], DANIELLE R 309.0 AD ADJ D/O W DEPRESSED 02/08/2013 [facility], DANIELLE R 309.0 AD ADJ D/O W DEPRESSED 02/08/2013 [employer], KOFFI J 309.0 AD ADJ D/O W DEPRESSED 02/08/2013 [employer], KOFFI J 309.0 AD ADJ D/O W DEPRESSED 02/08/2013 [employer], KOFFI J 309.0 AD ADJ D/O W DEPRESSED 02/08/2013 [employer], KOFFI J 309.0 AD ADJ D/O W DEPRESSED 02/08/2013 [employer], KOFFI J 309.0 AD ADJ D/O W DEPRESSED 02/08/2013 [facility], DANIELLE R 309.0 AD ADJ D/O W DEPRESSED 02/08/2013 [employer], KOFFI J 309.0 AD ADJ D/O W DEPRESSED 02/08/2013 [facility], DANIELLE R 309.0 AD ADJ D/O W DEPRESSED 04/16/2013 KAITLYNN OSORIO PHD 300.00 AN ANXIETY UNSPEC 04/16/2013 KAITLYNN OSORIO PHD 314.9 UNSPECIFIED HYPERKINETIC SYNDROME OF CHILDHOOD 04/16/2013 KAITLYNN OSORIO PHD 315.9 UNSPECIFIED DELAY IN DEVELOPMENT 04/16/2013 [facility], DANIELLE R 300.00 AN ANXIETY UNSPEC 04/16/2013 [facility], DANIELLE R 314.9 UNSPECIFIED HYPERKINETIC SYNDROME OF CHILDHOOD 04/16/2013 [facility], DANIELLE R 315.9 UNSPECIFIED DELAY IN DEVELOPMENT 04/16/2013 LOLA ORTA MD 300.0 0 AN ANXIETY UNSPEC 04/16/2013 LOLA ORTA MD 314.9 UNSPECIFIED HYPERKINETIC SYNDROME OF CHILDHOOD 04/16/2013 LOLA ORTA MD 315.9 UNSPECIFIED DELAY IN DEVELOPMENT 04/16/2013 PHILLIP GARCIA JR 300.00 AN ANXIETY UNSPEC 04/16/2013 PHILLIP GARCIA JR 314.9 UNSPECIFIED HYPERKINETIC SYNDROME OF CHILDHOOD 04/16/2013 PHILLIP GARCIA JR 315.9 UNSPECIFIED DELAY IN DEVELOPMENT 04/16/2013 LOLA ORTA MD 300.0 0 AN ANXIETY UNSPEC 04/16/2013 LOLA ORTA MD 314.9 UNSPECIFIED HYPERKINETIC SYNDROME OF CHILDHOOD 04/16/2013 LOLA ORTA MD 315.9 UNSPECIFIED DELAY IN DEVELOPMENT 04/16/2013 [facility], DANIELLE R 300.00 AN ANXIETY UNSPEC 04/16/2013 [facility], DANIELLE R 314.9 UNSPECIFIED HYPERKINETIC SYNDROME OF CHILDHOOD 04/16/2013 [facility], DANIELLE R 315.9 UNSPECIFIED DELAY IN DEVELOPMENT 04/16/2013 LOLA ORTA MD 300.0 0 AN ANXIETY UNSPEC 04/16/2013 LOLA ORTA MD 314.9 UNSPECIFIED HYPERKINETIC SYNDROME OF CHILDHOOD 04/16/2013 LOLA ORTA MD 315.9 UNSPECIFIED DELAY IN DEVELOPMENT 04/16/2013 [facility], DANIELLE R 300.00 AN ANXIETY UNSPEC 04/16/2013 [facility] LSCS, DANIELLE R 314.9 UNSPECIFIED HYPERKINETIC SYNDROME OF CHILDHOOD 04/16/2013 [facility] LSCS, DANIELLE R 315.9 UNSPECIFIED DELAY IN DEVELOPMENT 04/16/[facility] 300.00 AN ANXIETY UNSPEC 04/16/2013 [facility] DANIELLE R 314.9 UNSPECIFIED HYPERKINETIC SYNDROME OF CHILDHOOD 04/16/2013 [facility] DANIELLE R 315.9 UNSPECIFIED DELAY IN DEVELOPMENT 04/16/2013 [facility] DANIELLE R 300.00 AN ANXIETY UNSPEC 04/16/2013 [facility] LSCS, DANIELLE R 314.9 UNSPECIFIED HYPERKINETIC SYNDROME OF CHILDHOOD 04/16/2013 [facility] CS, DANIELLE R 315.9 UNSPECIFIED DELAY IN DEVELOPMENT 04/16/2013 [facility]ANI[facility]LE R 300.00 AN ANXIETY UNSPEC 04/16/2013 [facility] DANIELLE R 314.9 UNSPECIFIED HYPERKINETIC SYNDROME OF CHILDHOOD 04/16/2013 [facility] DANIELLE R 315.9 UNSPECIFIED DELAY IN DEVELOPMENT 04/16/2013 LOLA ORTA MD 300.0 0 AN ANXIETY UNSPEC 04/16/2013 LOLA ORTA MD 314.9 UNSPECIFIED HYPERKINETIC SYNDROME OF CHILDHOOD 04/16/2013 LOLA ORTA MD 315.9 UNSPECIFIED DELAY IN DEVELOPMENT 04/16/2013 [facility] DANIELLE R 300.00 AN ANXIETY UNSPEC 04/16/2013 [facility] DANIELLE R 314.9 UNSPECIFIED HYPERKINETIC SYNDROME OF CHILDHOOD 04/16/2013 [facility] DANI[facility]LE R 315.9 UNSPECIFIED DELAY IN DEVELOPMENT 04/16/2013 KOFFI WARREN APRN 300.00 AN ANXIETY UNSPEC 04/16/2013 KOFFI WARREN APRN 314.9 UNSPECIFIED HYPERKINETIC SYNDROME OF CHILDHOOD 04/16/2013 KOFFI WARREN APRN 315.9 UNSPECIFIED DELAY IN DEVELOPMENT 04/16/2013 [facility], DANIELLE R 300.00 AN ANXIETY UNSPEC 04/16/2013 [facility], DANIELLE R 314.9 UNSPECIFIED HYPERKINETIC SYNDROME OF CHILDHOOD 04/16/2013 [facility], DANIELLE R 315.9 UNSPECIFIED DELAY IN DEVELOPMENT 04/16/2013 KOFFI WARREN APRN 300.00 AN ANXIETY UNSPEC 04/16/2013 KOFFI WARREN APRN 314.9 UNSPECIFIED HYPERKINETIC SYNDROME OF CHILDHOOD 04/16/2013 KOFFI WARREN APRN 315.9 UNSPECIFIED DELAY IN DEVELOPMENT 04/16/2013 [facility], DANIELLE R 300.00 AN ANXIETY UNSPEC 04/16/2013 [facility], DANIELLE R 314.9 UNSPECIFIED HYPERKINETIC SYNDROME OF CHILDHOOD 04/16/2013 [facility], DANIELLE R 315.9 UNSPECIFIED DELAY IN DEVELOPMENT 04/16/2013 [facility], DANIELLE R 300.00 AN ANXIETY UNSPEC 04/16/2013 [facility], DANIELLE R 314.9 UNSPECIFIED HYPERKINETIC SYNDROME OF CHILDHOOD 04/16/2013 [facility], DANIELLE R 315.9 UNSPECIFIED DELAY IN DEVELOPMENT 04/16/2013 KOFFI WARREN APRN 300.00 AN ANXIETY UNSPEC 04/16/2013 KOFFI WARREN APRN 314.9 UNSPECIFIED HYPERKINETIC SYNDROME OF CHILDHOOD 04/16/2013 KOFFI WARREN APRN 315.9 UNSPECIFIED DELAY IN DEVELOPMENT 04/16/2013 [facility], DANIELLE R 300.00 AN ANXIETY UNSPEC 04/16/2013 [facility], DANIELLE R 314.9 UNSPECIFIED HYPERKINETIC SYNDROME OF CHILDHOOD 04/16/2013 [facility], DANIELLE R 315.9 UNSPECIFIED DELAY IN DEVELOPMENT 04/16/2013 [facility], DANIELLE R 300.00 AN ANXIETY UNSPEC 04/16/2013 [facility], DANIELLE R 314.9 UNSPECIFIED HYPERKINETIC SYNDROME OF CHILDHOOD 04/16/2013 [facility], DANIELLE R 315.9 UNSPECIFIED DELAY IN DEVELOPMENT 04/16/2013 KOFFI WARREN APRN 300.00 AN ANXIETY UNSPEC 04/16/2013 KOFFI WARREN APRN 314.9 UNSPECIFIED HYPERKINETIC SYNDROME OF CHILDHOOD 04/16/2013 SEAN WARREN APRNA J 315.9 UNSPECIFIED DELAY IN DEVELOPMENT 04/16/2013 DMITRIY WARREN APRNINDA J 300.00 AN ANXIETY UNSPEC 04/16/2013 SEAN WARREN APRNA J 314.9 UNSPECIFIED HYPERKINETIC SYNDROME OF CHILDHOOD 04/16/2013 DMITRIY WARREN APRNINDA J 315.9 UNSPECIFIED DELAY IN DEVELOPMENT 04/16/2013 SEAN WARREN APRNA J 300.00 AN ANXIETY UNSPEC 04/16/2013 SEAN WARREN APRNA J 314.9 UNSPECIFIED HYPERKINETIC SYNDROME OF CHILDHOOD 04/16/2013 DMITRIY WARREN APRNINDA J 315.9 UNSPECIFIED DELAY IN DEVELOPMENT 04/16/2013 DMITRIY WARREN APRNINDA J 300.00 AN ANXIETY UNSPEC 04/16/2013 SEAN WARREN APRNA J 314.9 UNSPECIFIED HYPERKINETIC SYNDROME OF CHILDHOOD 04/16/2013 DMITRIY WARREN APRNINDA J 315.9 UNSPECIFIED DELAY IN DEVELOPMENT 04/16/2013 SEAN WARREN APRNA J 300.00 AN ANXIETY UNSPEC 04/16/2013 DMITRIY WARREN APRNINDA J 314.9 UNSPECIFIED HYPERKINETIC SYNDROME OF CHILDHOOD 04/16/2013 BRIANA POWELL KOFFI J 315.9 UNSPECIFIED DELAY IN DEVELOPMENT 04/16/[address] [facility], DANIELLE R 300.00 AN ANXIETY UNSPEC 04/16/2013 [facility], DANIELLE R 314.9 UNSPECIFIED HYPERKINETIC SYNDROME OF CHILDHOOD 04/16/2013 [facility], DANIELLE R 315.9 UNSPECIFIED DELAY IN DEVELOPMENT 04/16/2013 SEAN WARREN APRNA J 300.00 AN ANXIETY UNSPEC 04/16/2013 DMITRIY WARREN APRNINDA J 314.9 UNSPECIFIED HYPERKINETIC SYNDROME OF CHILDHOOD 04/16/2013 BRIANA POWELL KOFFI J 315.9 UNSPECIFIED DELAY IN DEVELOPMENT 04/16/[address] [facility], DANIELLE R 300.00 AN ANXIETY UNSPEC 04/16/[address] [facility], DANIELLE R 314.9 UNSPECIFIED HYPERKINETIC SYNDROME OF CHILDHOOD 04/16/2013 [facility], DANIELLE R 315.9 UNSPECIFIED DELAY IN DEVELOPMENT 06/08/2013 LOLA ORTA MD 300.2 3 AN SOCIAL PHOBIA 06/08/2013 LOLA ORTA MD 314.0 0 ADHD INATTENTIVE 06/08/2013 [facility], DANIELLE R 300.23 AN SOCIAL PHOBIA 06/08/2013 [facility], DANIELLE R 314.00 ADHD INATTENTIVE 06/08/2013 LOLA ORTA MD 300.2 3 AN SOCIAL PHOBIA 06/08/2013 LOLA ORTA MD 314.0 0 ADHD INATTENTIVE 06/08/2013 [facility], DANIELLE R 300.23 AN SOCIAL PHOBIA 06/08/2013 [facility], DANIELLE R 314.00 ADHD INATTENTIVE 06/08/2013 [facility], DANIELLE R 300.23 AN SOCIAL PHOBIA 06/08/2013 [facility], DANIELLE R 314.00 ADHD INATTENTIVE 06/08/2013 [facility], DANIELLE R 300.23 AN SOCIAL PHOBIA 06/08/2013 [facility], DANIELLE R 314.00 ADHD INATTENTIVE 06/08/2013 [facility], DANIELLE R 300.23 AN SOCIAL PHOBIA 06/08/2013 [facility], DANIELLE R 314.00 ADHD INATTENTIVE 06/08/2013 LOLA ORTA MD 300.2 3 AN SOCIAL PHOBIA 06/08/2013 LOLA ORTA MD 314.0 0 ADHD INATTENTIVE 06/08/2013 [facility], DANIELLE R 300.23 AN SOCIAL PHOBIA 06/08/2013 [facility], DANIELLE R 314.00 ADHD INATTENTIVE 06/08/2013 KOFFI WARREN APRN J 300.23 AN SOCIAL PHOBIA 06/08/2013 SEAN WARREN APRNA J 314.00 ADHD INATTENTIVE 06/08/2013 [facility], DANIELLE R 300.23 AN SOCIAL PHOBIA 06/08/2013 [facility], DANIELLE R 314.00 ADHD INATTENTIVE 06/08/2013 BRIANA POWELL KFOFI J 300.23 AN SOCIAL PHOBIA 06/08/2013 BRIANA POWELL KOFFI J 314.00 ADHD INATTENTIVE 06/08/2013 [facility], DANIELLE R 300.23 AN SOCIAL PHOBIA 06/08/2013 DEVON [facility], DANIELLE R 314.00 ADHD INATTENTIVE 06/08/2013 [facility]ON [facility], DANIELLE R 300.23 AN SOCIAL PHOBIA 06/08/2013 DEVON [facility]SC[facility], DANIELLE R 314.00 ADHD INATTENTIVE 06/08/2013 BRIANA [employer], KOFFI J 300.23 AN SOCIAL PHOBIA 06/08/2013 BRIANA LOCON, KOFFI J 314.00 ADHD INATTENTIVE 06/08/[address] [facility], DANIELLE R 300.23 AN SOCIAL PHOBIA 06/08/[address] [facility], DANIELLE R 314.00 ADHD INATTENTIVE 06/08/[address] [facility], DANIELLE R 300.23 AN SOCIAL PHOBIA 06/08/[address] [facility], DANIELLE R 314.00 ADHD INATTENTIVE 06/08/2013 BRIANA POWELL KOFFI J 300.23 AN SOCIAL PHOBIA 06/08/2013 BRIANA LOCON KOFFI J 314.00 ADHD INATTENTIVE 06/08/2013 BRIANA LOCON KOFFI J 300.23 AN SOCIAL PHOBIA 06/08/2013 BRIANA POWELL KOFFI J 314.00 ADHD INATTENTIVE 06/08/2013 BRIANA POWELL KOFFI J 300.23 AN SOCIAL PHOBIA 06/08/2013 BRIANA POWELL KOFFI J 314.00 ADHD INATTENTIVE 06/08/2013 BRIANA POWELL KOFFI J 300.23 AN SOCIAL PHOBIA 06/08/2013 BRIANA POWELL KOFFI J 314.00 ADHD INATTENTIVE 06/08/2013 BRIANA LOCON KOFFI J 300.23 AN SOCIAL PHOBIA 06/08/2013 BRIANA LOCON KOFFI J 314.00 ADHD INATTENTIVE 06/08/[address] [facility], DANIELLE R 300.23 AN SOCIAL PHOBIA 06/08/[address] [facility], DANIELLE R 314.00 ADHD INATTENTIVE 06/08/2013 BRIANA POWELL KOFFI J 300.23 AN SOCIAL PHOBIA 06/08/2013 DMITRIY WARREN APRNINDA J 314.00 ADHD INATTENTIVE 06/08/[address] [facility], DANIELLE R 300.23 AN SOCIAL PHOBIA 06/08/2013 [facility], DANIELLE R 314.00 ADHD INATTENTIVE 02/03/2014 SEAN WARREN APRNA J 309.81 AN PTSD 02/03/2014 SEAN WARREN APRNA J 309.81 AN PTSD 02/03/2014 SEAN WARREN APRNA J 309.81 AN PTSD 02/03/2014 SEAN WARREN APRNA J 309.81 AN PTSD 02/03/2014 [facility], DANIELLE R 309.81 AN PTSD 02/03/2014 KOFFI WARREN APRN 309.81 AN PTSD 02/03/[address] [facility] Procedures Code Description [place] [address] PSYC H DIAGNOSTIC EVALUATION 02/19/2013 40485 PSYT X PT&/FAMILY 45 MINUTES 04/02/2013 36496 PSYC H DIAGNOSTIC EVALUATION 04/19/2013 59163 PSYT X PT&/FAMILY 45 MINUTES 05/06/2013 02448 PSYT X PT&/FAMILY 45 MINUTES 05/29/2013 52182 PSYT X PT&/FAMILY 45 MINUTES 06/15/2013 31600 PSYT X PT&/FAMILY 45 MINUTES 07/20/2013 58175 PSYT X PT&/FAMILY 45 MINUTES 08/03/2013 06236 PSYT X PT&/FAMILY 45 MINUTES 08/18/2013 08418 PSYT X PT&/FAMILY 45 MINUTES 09/01/2013 07946 PSYT X PT&/FAMILY 45 MINUTES 09/15/2013 80320 PSYT X PT&/FAMILY 45 MINUTES 10/06/2013 89786 PSYT X PT&/FAMILY 45 MINUTES 10/20/2013 56722 PSYT X PT&/FAMILY 45 MINUTES 11/03/2013 [facility] 12/02/2013 73653 PSYT X PT&/FAMILY 45 MINUTES 12/03/2013 28301 PSYT X PT&/FAMILY 45 MINUTES 12/16/2013 97462 PSYT X PT&/FAMILY 45 MINUTES 07/14/2014 Results There is no data. Encounters ACCT No. Visit Date/Time Discharge Status Pt. Type Provider Facility Loc./Unit Complaint [id number] 09/01/2014 15:50:00 09/01/2014 23:59: [address] [id number] 07/21/2014 14:56:00 07/21/2014 23:59: 59 CLS Outpatient KOFFI WARREN APRN [id number] 07/14/2014 15:45:00 07/14/2014 23:59: 59 CLS Outpatient DEVON MILAGROS GOREUNRULY Perez [id number] 05/24/2014 15:21:00 05/24/2014 23:59: 59 CLS Outpatient KOFFI WARREN APRN [id number] 03/24/2014 11:09:00 03/24/2014 23:59: 59 CLS Outpatient KOFFI WARREN APRN Alla [id number] 02/03/2014 10:09:00 02/03/2014 23:59: 59 CLS Outpatient KOFFI WARREN APRN [facility] [id number] 02/03/2014 10:09:00 02/03/2014 23:59: 59 CLS Outpatient KOFFI WARREN APRN [facility] [id number] 12/16/2013 10:49:00 12/16/2013 23:59: 59 CLS Outpatient [facility], DANIELLE R [id number] 12/02/2013 11:03:00 12/02/2013 23:59: 59 CLS Outpatient [facility], DANIELLE Perez [id number] 12/02/2013 10:27:00 12/02/2013 23:59: 59 CLS Outpatient KOFFI WARREN APRN [facility] [id number] 11/03/2013 15:34:00 11/03/2013 23:59: 59 CLS Outpatient [facility]ON [facility], DANIELLE Perez [id number] 10/20/2013 15:47:00 10/20/2013 23:59: 59 CLS Outpatient [facility], DANIELLE Perez [id number] 10/13/2013 13:22:00 10/13/2013 23:59: 59 CLS Outpatient KOFFI WARREN APRN [facility] [id number] 10/13/2013 13:22:00 10/13/2013 23:59: 59 CLS Outpatient KOFFI WARREN APRN [facility] [id number] 10/06/2013 15:41:00 10/06/2013 23:59: 59 CLS Outpatient [facility], DANIELLE R [id number] 09/15/2013 10:48:00 09/15/2013 23:59: 59 CLS Outpatient DEVON LSCS, DANIELLE Perez [id number] 09/08/2013 15:52:00 09/08/2013 23:59: 59 CLS Outpatient BRIANA LOCONKOFFI Alla [id number] 09/08/2013 15:52:00 09/08/2013 23:59: 59 CLS Outpatient LOLA ORTA MD [id number] 09/01/2013 15:38:00 09/01/2013 23:59: 59 CLS Outpatient DEVON LSCS, DANIELLE Perez [id number] 08/17/2013 16:38:00 08/17/2013 23:59: 59 CLS Outpatient DEVON LSCS, DANIELLE Perez [id number] 08/03/2013 12:20:00 08/03/2013 23:59: 59 CLS Outpatient DEVON LSCS, DANIELLE Perez [id number] 07/20/2013 15:32:00 07/20/2013 23:59: 59 CLS Outpatient DEVON LSCS, DANIELLE Perez [id number] 07/07/2013 11:48:00 07/07/2013 23:59: 59 CLS Outpatient LOLA ORTA MD [id number] 06/11/2013 15:43:00 06/11/2013 23:59: 59 CLS Outpatient DEVON LSCS, DANIELLE Ana [id number] 06/08/2013 12:07:00 06/08/2013 23:59: 59 CLS Outpatient LOLA ORTA MD [id number] 05/10/2013 13:50:00 05/10/2013 23:59: 59 CLS Outpatient PHILLIP GARCIA JR [id number] 05/10/2013 13:50:00 05/10/2013 23:59: 59 CLS Outpatient LOLA ORTA MD [id number] 05/05/2013 14:04:00 05/05/2013 23:59: 59 CLS Outpatient DEVON LSCS, DANIELLE Ana [id number] 04/16/2013 15:42:00 04/16/2013 23:59: 59 CLS Outpatient KAILTYNN OSORIO PHD [id number] 04/01/2013 15:49:00 04/01/2013 23:59: 59 CLS Outpatient DEVON LSCS, DANIELLE Perez [id number] 02/08/2013 08:49:00 Document Registration [email or web address] 01/04/2015 02:07:20 ACT Document Registration
== END 2019-06-02 19:20 | disposition home or self-care (01) | DRG 807 ==
LOC: LDRP 06:24
PROVIDERS: ADMIT Family Medicine; ATTEND Family Medicine
PROC: 10E0XZZ Delivery of Products of Conception, External Approach (ICD-10-PCS; principal; 2019-06-01)
PROC: 10907ZC Drainage of Amniotic Fluid, Therapeutic from Products of Conception, Via Natural or Artificial Opening (ICD-10-PCS; 2019-06-01)
DX: O99.62 Diseases of the digestive system complicating childbirth (principal); K21.9 Gastro-esophageal reflux disease without esophagitis; O99.214 Obesity complicating childbirth; E66.9 Obesity, unspecified; Z3A.39 39 weeks gestation of pregnancy; Z37.0 Single live birth
CPT/HCPCS: 36415; 85025; 86703; 86850; 86900; 86901